=== PATIENT | female | born 1985 | race Caucasian/White ===

== ENCOUNTER 2020-01-01 | Emergency (ER) | payer OTHER ==
[~2020-01-01] MED LIST: DEPO-PROVER150 MG/ML IM; FIORICET PO; FLUOXETINE20 MG PO; FLUZONE SPLT1 M1 IM; HEMAX PO; OBTREX DHA PO; ONDANSETRON ODT8 MG PO; TAM75CAP PO; TUBERSOL5 MG/0.1 M ID
[2020-01-01] MEDS ORDERED: AMOX/K CLAV875 M1 PO (12:35)
[2020-04-19] MEDS ORDERED: MELATONIN3 MG PO (14:25)
== END 2020-01-01 12:45 | disposition home or self-care (01) | DRG 151 ==
DX: R04.0 Epistaxis (principal)

== ENCOUNTER 2020-03-28 08:25 | Day surgery (SDC) | payer OTHER ==
[~2020-03-28 08:25] MED LIST changes: +AMOX/K CLAV875 M1 PO
[2020-03-28 11:24] VITALS: BP 98/61
[2020-04-19] MEDS ORDERED: MELATONIN3 MG PO (14:25)
== END 2020-03-28 11:35 | disposition home or self-care (01) | DRG 392 ==
LOC: ORM 08:25
PROVIDERS: ATTEND Surgery
PROC: 0DJ08ZZ Inspection of Upper Intestinal Tract, Via Natural or Artificial Opening Endoscopic (ICD-10-PCS; principal; 2020-03-28)
DX: R13.10 Dysphagia, unspecified (principal); T85.518A Breakdown (mechanical) of other gastrointestinal prosthetic devices, implants and grafts, initial encounter; Y83.8 Other surgical procedures as the cause of abnormal reaction of the patient, or of later complication, without mention of misadventure at the time of the procedure; Z98.84 Bariatric surgery status

== ENCOUNTER 2020-04-25 08:01 | Day surgery (SDC) | payer OTHER ==
[~2020-04-25] VITALS: Ht 167.6 cm; Wt 74.8 kg
[~2020-04-25 08:01] MED LIST changes: +MELATONIN3 MG PO
[2020-04-25] MEDS ORDERED: PERCOCET 5/325M1 TAB PO (11:37)
[2020-04-25] MEDS ORDERED: IBUPROFEN600 MG PO (11:37)
[2020-04-25 13:28] VITALS: BP 98/64
== END 2020-04-25 12:40 | disposition home or self-care (01) | DRG 328 ==
LOC: ORM 08:01
PROVIDERS: ATTEND Surgery
PROC: 0DP64CZ Removal of Extraluminal Device from Stomach, Percutaneous Endoscopic Approach (ICD-10-PCS; principal; 2020-04-25)
PROC: 0JPT0YZ Removal of Other Device from Trunk Subcutaneous Tissue and Fascia, Open Approach (ICD-10-PCS; 2020-04-25)
DX: R13.10 Dysphagia, unspecified (principal); Z98.84 Bariatric surgery status; Z11.59 Encounter for screening for other viral diseases
CPT/HCPCS: J0131; J1100